=== PATIENT | female | born 1955 | race Caucasian/White ===

== ENCOUNTER 2018-05-13 12:24 | Emergency (ER) | payer BC ==
[2018-05-13 12:57] VITALS: BP 118/73
--- NOTE | 2018-05-13 13:11 | UC ---
FLU HPI - HPI Summary HPI Summary: This is neha Yao documenting for attending Javier Jackson MD. This patient is a 62 year old F presenting to [facility] with a chief complaint of a flu like sx for the last 4 days. The patient rates the pain 7/10 in severity. Symptoms alleviated by asa and OTC cold medication. Patient reports myalgia, neck pain, nasal pressure, headache, and nausea. Patient denies rhinorrhea, nasal discharge, ear pain, and sore throat. Hx sinus headaches. Pt is concerned she may have the flu or a sinus infection. NKDA - History of Current Complaint Chief Complaint: UCRespiratory Stated Complaint: SINUS ISSUE Time Seen by Provider: 05/13/18 12:52 Hx Obtained From: Patient Hx Last Menstrual Period: n/a Onset/Duration: Lasting Days - 4, Still Present Severity Currently: Moderate Severity Initially: Moderate Pain Intensity: 7 Pain Scale Used: 0-10 Numeric Associated Signs & Symptoms: Positive: Myalgia, Headache. Negative: Fever, Sore Throat, Nasal Congestion - Allergy/Home Medications Allergies/Adverse Reactions: Allergies Allergy/AdvReac Type Severity Reaction Status Date / Time environmental/ seasonal Allergy Congestion Uncoded 05/13/18 12:57 Home Medications: Home Medications Metoprolol Succinate XL TAB* [Toprol XL TAB*] 25 mg PO DAILY 05/13/18 [History Confirmed 05/13/18] Venlafaxine EXT RELEASE CAP* [Effexor Xr CAP*] 2 tab PO DAILY 05/13/18 [History Confirmed 05/13/18] PMH/Surg Hx/FS Hx/Imm Hx Cardiovascular History: Other Other Cardiovascular History: Irregular heartbeat Cancer History: Other Other Cancer History: skin - Surgical History Surgical History: Yes Surgery Procedure, Year, and Place: tubal ligation - Family History Known Family History: Negative: Respiratory Disease, Seizure Disorder, Blood Disorder - Social History Alcohol Use: Occasionally Substance Use Type: None Smoking Status (MU): Never Smoked Tobacco Review of Systems ENT: Sinus Pain/Tenderness Gastrointestinal: Nausea Musculoskeletal: Myalgia, Other: - neck pain Neurological: Headache All Other Systems Reviewed And Are Negative: Yes Physical Exam - Summary Physical Exam Summary: General: well-appearing, no pain distress Skin: warm, color reflects adequate perfusion, dry Head: normal Eyes: EOMI, KIRAN ENT: positive rhinorrhea Neck: supple, nontender Respiratory: CTA, breath sounds present Cardiovascular: RRR Abdomen: soft, nontender Bowel: present Musculoskeletal: normal, strength/ROM intact Neurological: sensory/motor intact, A&O x3 Psychological: affect/mood appropriate Triage Information Reviewed: Yes Vital Signs: Initial Vital Signs Temp 98.5 F 05/13/18 12:52 Pulse 82 05/13/18 12:52 Resp 16 05/13/18 12:52 BP 118/73 05/13/18 12:52 Pulse Ox 97 05/13/18 12:52 Vital Signs Reviewed: Yes Flu Course/Dx - Course Course Of Treatment: DISCUSSED VIRAL VERSES BACTERIAL INFECTION AND THE ROLE OF ANTIBIOTICS. THE PATIENT WISHES TO BE ON ANTIBIOTICS AT THIS TIME. F/U PMD; RECHECK SOONER IF WORSE. - Differential Dx/Diagnosis Provider Diagnoses: SINUSITIS Discharge - Sign-Out/Discharge Documenting (check all that apply): Patient Departure - Discharge Plan Condition: Stable Disposition: HOME Prescriptions: Amoxicillin/Clavulanate TAB* [Augmentin TAB 875*] 875 mg PO BID #20 tab Patient Education Materials: Sinusitis (ED) Referrals: Nida Akins MD [Primary Care Provider] - Additional Instructions: FOLLOW UP WITH YOUR DOCTOR. GET RECHECKED FOR ANY WORSENING OF YOUR CONDITION OR QUESTIONS OR CONCERNS. - Billing Disposition and Condition Condition: STABLE Disposition: Home Attestation Statement Scribe Attestation: This is neha Yao documenting for attending Javier Jackson MD. User Type: Provider with Scribe Provider Attestation: The documentation recorded by the scribe accurately reflects the service I personally performed and the decisions made by me.
== END 2018-05-13 13:22 | disposition home or self-care (01) ==
LOC: UCEAST 12:24
DX: J32.9 Chronic sinusitis, unspecified (principal)
CPT/HCPCS: 99211; G0463

== ENCOUNTER 2019-05-11 16:52 | Emergency (ER) | payer BC ==
[2019-05-11 17:01] VITALS: BP 127/66
--- NOTE | 2019-05-11 17:23 | UC ---
Throat Pain/Nasal Emerson HPI - HPI Summary HPI Summary: 63 yo female with right sided throat pain x 4 days better today than yesterday able to eat and drink no documented fever some myalgias no n/v/d - History of Current Complaint Chief Complaint: UCGeneralIllness Stated Complaint: SORE THROAT/NECK ACHE Time Seen by Provider: 05/11/19 17:01 Hx Obtained From: Patient Hx Last Menstrual Period: n/a Onset/Duration: Gradual Onset, Lasting Days Severity: Mild Pain Intensity: 4 Pain Scale Used: 0-10 Numeric Cough: None Associated Signs & Symptoms: Positive: Fever - Epiglottits Risk Factors Epiglottis Risk Factors: Negative - Allergies/Home Medications Allergies/Adverse Reactions: Allergies Allergy/AdvReac Type Severity Reaction Status Date / Time environmental/ seasonal Allergy Congestion Uncoded 05/11/19 17:01 Home Medications: Home Medications Dm/Acetaminophen/Doxylamine [Vicks Nyquil Liquicaps] 1 each PO Q12H 05/11/19 [ History Confirmed 05/11/19] PMH/Surg Hx/FS Hx/Imm Hx Previously Healthy: Yes Cardiovascular History: Hypertension - Surgical History Surgical History: Yes Surgery Procedure, Year, and Place: tubal ligation - Family History Known Family History: Positive: Hypertension Negative: Respiratory Disease, Seizure Disorder, Blood Disorder - Social History Alcohol Use: Weekly Alcohol Amount: 2 Substance Use Type: None Smoking Status (MU): Never Smoked Tobacco Review of Systems All Other Systems Reviewed And Are Negative: Yes Constitutional: Positive: Negative Skin: Positive: Negative Eyes: Positive: Negative ENT: Positive: Sore Throat Respiratory: Positive: Negative Cardiovascular: Positive: Negative Gastrointestinal: Positive: Negative Genitourinary: Positive: Negative Motor: Positive: Negative Neurovascular: Positive: Negative Musculoskeletal: Positive: Negative Neurological: Positive: Negative Psychological: Positive: Negative Physical Exam Triage Information Reviewed: Yes Appearance: Well-Appearing, No Pain Distress, Well-Nourished Vital Signs: Initial Vital Signs Temp 98.3 F 05/11/19 16:57 Pulse 71 05/11/19 16:57 Resp 16 05/11/19 16:57 BP 127/66 05/11/19 16:57 Pulse Ox 98 05/11/19 16:57 Vital Signs Reviewed: Yes Eyes: Positive: Conjunctiva Clear ENT: Positive: Hearing grossly normal, Pharyngeal erythema, Tonsillar swelling - R>L, Uvula midline. Negative: Tonsillar exudate, Trismus, Muffled voice, Hoarse voice, Dental tenderness Neck: Positive: Supple, Nontender, Enlarged Nodes @ - ant cerv (mild) Respiratory: Positive: Lungs clear, Normal breath sounds, No respiratory distress, No accessory muscle use Cardiovascular: Positive: RRR, No Murmur Musculoskeletal: Positive: ROM Intact, No Edema Neurological: Positive: Alert Psychological Exam: Normal Skin Exam: Normal Diagnostics - Laboratory Lab Results: strep (-) Throat Pain/Nasal Course/Dx - Differential Dx/Diagnosis Provider Diagnosis: Tonsillitis Discharge - Sign-Out/Discharge Documenting (check all that apply): Patient Departure All imaging exams completed and their final reports reviewed: No Studies - Discharge Plan Condition: Stable Disposition: HOME Patient Education Materials: Tonsillitis (ED) Referrals: Nida Akins MD [Primary Care Provider] - 5 Days (if not better) Additional Instructions: a throat culture is pending - Billing Disposition and Condition Condition: STABLE Disposition: Home
== END 2019-05-11 17:45 | disposition home or self-care (01) ==
LOC: UCEAST 16:52
DX: J03.90 Acute tonsillitis, unspecified (principal); I10 Essential (primary) hypertension
CPT/HCPCS: 87070; 87651; 99212; G0463

== ENCOUNTER 2019-11-22 14:47 | Emergency (ER) | payer BC ==
[2019-11-22 15:42] VITALS: BP 122/71
--- NOTE | 2019-11-22 15:48 | UC ---
Throat Pain/Nasal Emerson HPI - HPI Summary HPI Summary: 64-year-old female who had cold symptoms last week and has had progressively increasing sinus pressure with postnasal drainage and yellow nasal coryza. She states over the past 2 days she's felt more achy with fever. - History of Current Complaint Chief Complaint: UCRespiratory Stated Complaint: SINUS COMPLAINT Time Seen by Provider: 11/22/19 15:33 Hx Obtained From: Patient Hx Last Menstrual Period: n/a ?: No Onset/Duration: Gradual Onset, Lasting Days Severity: Mild Pain Intensity: 6 Cough: Nonproductive Associated Signs & Symptoms: Positive: Sinus Discomfort, Nasal Discharge - Allergies/Home Medications Allergies/Adverse Reactions: Allergies Allergy/AdvReac Type Severity Reaction Status Date / Time environmental/ seasonal Allergy Congestion Uncoded 11/22/19 15:29 Home Medications: Home Medications Aspirin TAB* [Aspirin 325 MG TAB*] 3 tab PO ONCE 11/22/19 [History Confirmed ] D-Methorphan/PE/Acetaminophen [Cold Multi-Symptom Daytim] 1 tab PO PRN 11/22/19 [History] PMH/Surg Hx/FS Hx/Imm Hx Previously Healthy: Yes Cancer History: Other - History of skin cancer - Surgical History Surgical History: Yes Surgery Procedure, Year, and Place: tubal ligation - Family History Known Family History: Positive: Hypertension Negative: Respiratory Disease, Seizure Disorder, Blood Disorder - Social History Alcohol Use: Occasionally Alcohol Amount: 1-2 Substance Use Type: None Smoking Status (MU): Never Smoked Tobacco Review of Systems All Other Systems Reviewed And Are Negative: Yes Constitutional: Positive: Fever, Chills ENT: Positive: Nasal Discharge, Sinus Congestion, Sinus Pain/Tenderness Motor: Positive: Negative Neurovascular: Positive: Negative Musculoskeletal: Positive: Myalgia Neurological/Mental Status: Positive: Negative Psychological: Positive: Negative Is Patient Immunocompromised?: No Physical Exam Triage Information Reviewed: Yes Appearance: Well-Appearing, No Pain Distress, Well-Nourished Vital Signs: Initial Vital Signs Temp 99.7 F 11/22/19 15:31 Pulse 102 11/22/19 15:31 Resp 16 11/22/19 15:31 BP 122/71 11/22/19 15:31 Pulse Ox 97 11/22/19 15:31 Vital Signs Reviewed: Yes Eyes: Positive: Conjunctiva Clear ENT: Positive: Hearing grossly normal, Pharynx normal, Nasal congestion, Nasal drainage - Yellow purulent nasal coryza., TMs normal, Sinus tenderness - Tenderness over the maxillary sinuses bilaterally., Uvula midline Neck: Positive: Supple, Nontender, No Lymphadenopathy Respiratory: Positive: Lungs clear, Normal breath sounds, No respiratory distress, No accessory muscle use Cardiovascular: Positive: No Murmur, Pulses Normal, Brisk Capillary Refill, Tachycardia Musculoskeletal Exam: Normal Neurological Exam: Normal Psychological Exam: Normal Skin Exam: Normal Throat Pain/Nasal Course/Dx - Course Course Of Treatment: Rapid flu test: Negative Patient is comfortable here, I'm going to treated for sinusitis and she is to be out of work most of the week. - Differential Dx/Diagnosis Provider Diagnosis: Sinusitis, Influenza Discharge ED - Sign-Out/Discharge Documenting (check all that apply): Patient Departure All imaging exams completed and their final reports reviewed: No Studies - Discharge Plan Condition: Fair Disposition: HOME Prescriptions: Amoxicillin PO (*) [Amoxicillin 875 MG (*)] 875 mg PO BID 10 Days #20 tab Patient Education Materials: Sinusitis (ED), Influenza (DC) Referrals: Nida Akins MD [Primary Care Provider] - Additional Instructions: Rest, increase fluids, follow-up with your primary care provider if no improvement in 3 or 4 days. No work until you are fever free. - Billing Disposition and Condition Condition: FAIR Disposition: Home - Attestation Statements Provider Attestation: This patient was not seen by me. I was available for consult. Chart reviewed. BIJAN Addendum entered and electronically signed by Guadalupe Golden NP 11/22/19 16: 32: Addendum Addendum: Correction: Patient's flu test was positive
[2019-11-22 16:00] LABS: Influenza A Molecular POSITIVE (Negative)
== END 2019-11-22 16:15 | disposition home or self-care (01) ==
LOC: UCCORT 14:47
DX: J32.9 Chronic sinusitis, unspecified (principal); J11.1 Influenza due to unidentified influenza virus with other respiratory manifestations; Z91.09 Other allergy status, other than to drugs and biological substances
CPT/HCPCS: 99211; G0463

== ENCOUNTER 2019-11-27 15:38 | Emergency (ER) | payer BC ==
[2019-11-27] MEDS ORDERED: Albuterol/Ipratropium NEB.SOL* Albuterol 2.5 MG/Ipratropium 0.5 MG 3 ML INH ONE (16:43)
[2019-11-27 16:44] VITALS: BP 111/65
--- NOTE | 2019-11-27 16:47 | UC ---
Respiratory Complaint HPI - HPI Summary HPI Summary: Diagnosed with influenza and sinusitis this past week. Rx with Amoxicillin. Sinus pain is better, but still coughing. Cough is worse at night. - History of Current Complaint Chief Complaint: UCRespiratory Stated Complaint: COUGH, CHEST CONGESTION Hx Obtained From: Patient Hx Last Menstrual Period: n/a Onset/Duration: Sudden Onset Timing: Constant Severity Initially: Mild Severity Currently: Moderate Pain Intensity: 4 Character: Cough: Nonproductive Aggravating Factors: Deep Breaths, Recumbent Position Alleviating Factors: Nothing Associated Signs And Symptoms: Positive: Dyspnea, Wheezing, Nasal Congestion - Allergies/Home Medications Allergies/Adverse Reactions: Allergies Allergy/AdvReac Type Severity Reaction Status Date / Time environmental/ seasonal Allergy Congestion Uncoded 11/27/19 16:31 Home Medications: Home Medications Metoprolol Succinate XL TAB* [Toprol XL TAB*] 25 mg PO DAILY 05/13/18 [History Confirmed 11/27/19] Venlafaxine EXT RELEASE CAP* [Effexor Xr CAP*] 150 mg PO DAILY 05/13/18 [ History Confirmed 11/27/19] Ascorbic Acid TAB* [Vitamin C TAB*] 1,000 mg PO BID 01/20/19 [History Confirmed 11/27/19] diPHENhydraMINE PO* [Benadryl PO 25 MG TAB*] 25 mg PO BEDTIME PRN 01/20/19 [ History Confirmed 11/27/19] Cbd Salve 1 dose TOPICAL DAILY PRN 07/18/19 [History Confirmed 11/27/19] Amoxicillin PO (*) [Amoxicillin 875 MG (*)] 875 mg PO BID 10 Days #20 tab [Rx Confirmed 11/27/19] Aspirin TAB* [Aspirin 325 MG TAB*] 2 tab PO ONCE PRN 11/22/19 [History Confirmed 11/27/19] Albuterol HFA INHALER* [Ventolin HFA Inhaler*] 2 puff INH Q4H PRN #1 mdi [Rx] predniSONE 20 mg TAB [Deltasone 20 MG TAB*] 60 mg PO DAILY #18 tab 11/27/19 [Rx] PMH/Surg Hx/FS Hx/Imm Hx Previously Healthy: Yes - Surgical History Surgical History: Yes Surgery Procedure, Year, and Place: tubal ligation - Family History Known Family History: Positive: Hypertension, Diabetes Negative: Respiratory Disease, Seizure Disorder, Blood Disorder - Social History Occupation: Employed Full-time Lives: Alone Alcohol Use: Occasionally Alcohol Amount: 1-2 Substance Use Type: None Smoking Status (MU): Never Smoked Tobacco Review of Systems All Other Systems Reviewed And Are Negative: Yes Constitutional: Positive: Fatigue ENT: Positive: Sinus Congestion - resolved Respiratory: Positive: Shortness Of Breath, Cough Musculoskeletal: Positive: Myalgia Physical Exam Triage Information Reviewed: Yes Appearance: No Pain Distress, Well-Nourished, Ill-Appearing Vital Signs: Initial Vital Signs Temp 99.2 F 11/27/19 16:34 Pulse 89 11/27/19 16:34 Resp 20 11/27/19 16:34 BP 111/65 11/27/19 16:34 Pulse Ox 93 11/27/19 16:34 Vital Signs Reviewed: Yes Eyes: Positive: Conjunctiva Clear ENT: Positive: Pharynx normal, TMs normal Neck exam: Normal Respiratory: Positive: Wheezing - expiratory wheeze with cough Cardiovascular Exam: Normal Musculoskeletal Exam: Normal Neurological Exam: Normal Psychological Exam: Normal Skin Exam: Normal Diagnostics - Radiology No standard instances Radiology Interpretation Completed By: Radiologist Summary of Radiographic Findings: No active disease Respiratory Course/Dx - Differential Dx/Diagnosis Differential Diagnosis/HQI/PQRI: Asthma, Lower Resp Infection, Sinusitis Provider Diagnosis: Acute bronchospasm Discharge ED - Sign-Out/Discharge Documenting (check all that apply): Patient Departure All imaging exams completed and their final reports reviewed: Yes - Discharge Plan Condition: Stable Disposition: HOME Prescriptions: Albuterol HFA INHALER* [Ventolin HFA Inhaler*] 2 puff INH Q4H PRN #1 mdi PRN Reason: Wheezing predniSONE 20 mg TAB [Deltasone 20 MG TAB*] 60 mg PO DAILY #18 tab Patient Education Materials: Bronchospasm (ED) Referrals: Nida Akins MD [Primary Care Provider] - - Billing Disposition and Condition Condition: STABLE Disposition: Home
== END 2019-11-27 17:26 | disposition home or self-care (01) ==
LOC: UCCORT 15:38
DX: J98.01 Acute bronchospasm (principal); Z91.09 Other allergy status, other than to drugs and biological substances; M79.10 Myalgia, unspecified site
CPT/HCPCS: 71046; 99212; A9270-GY; G0463